=== PATIENT | female | born 1990 | race African-American/Black ===

== ENCOUNTER 2017-09-26 12:09 | Emergency (ER) | payer OTHER ==
[2017-09-26] MEDS ORDERED: Diphtheria,Pertussis(Acell),Tetanus Vaccine 0.5 ML Syringe IM ONE (12:26)
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
== END 2017-09-26 13:15 | disposition home or self-care (01) ==
LOC: MW.ED 12:09
DX: S01.512A Laceration without foreign body of oral cavity, initial encounter (principal); Z23 Encounter for immunization; W50.0XXA Accidental hit or strike by another person, initial encounter
CPT/HCPCS: 90471; 90715; 99282-25